=== PATIENT | female | born 1995 | race Caucasian/White ===

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

== ENCOUNTER 2017-04-08 10:05 | Emergency (ER) | payer OTHER ==
[2017-04-08 10:14] VITALS: BP 115/59; PULSE 80; TEMP 98.3; BMI 28.0
--- NOTE | 2017-04-08 10:33 | PDOC ---
History of Present Illness - General Chief Complaint: Cold Symptoms Stated Complaint: COLD SYMPTOMS Time Seen by Provider: 04/08/17 10:15 History Source: Patient Exam Limitations: No Limitations - History of Present Illness Initial Comments: CHIEF COMPLAINT: 21 y/o afebrile female with PMH asthma c/o flu like symptoms x 4 days. HISTORY OF PRESENT ILLNESS: The patient states she's had fever, cough, runny nose, and body aches x days. 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 She has not taken any medication. She did not get the flu shot. Past History - Past Medical History Allergies/Adverse Reactions: Allergies Allergy/AdvReac Type Severity Reaction Status Date / Time No Known Allergies Allergy Verified 04/08/17 10:13 Home Medications: Ambulatory Orders Albuterol Sulfate Inhaler - [Ventolin HFA Inhaler -] 1 - 2 inh PO Q6H #1 inhaler 04/08/17 Asthma: Yes COPD: No - Immunization History Immunization Up to Date: Yes - Suicide/Smoking/Psychosocial Hx Smoking Status: Yes Smoking History: Never smoked Have you smoked in the past 12 months: No Number of Cigarettes Smoked Daily: 0 Cigars Per Day: 0 Hx Alcohol Use: No Drug/Substance Use Hx: No Substance Use Type: Marijuana Review of Systems - Review of Systems Able to Perform ROS?: Yes Constitutional: Yes: Chills, Fever HEENTM: Yes: Nose Congestion, Throat Pain. No: Ear Pain, Throat Swelling, Difficulty Swallowing Respiratory: Yes: Cough. No: Shortness of Breath, Wheezing Cardiac (ROS): No: Chest Pain ABD/GI: No: Nausea, Vomiting Musculoskeletal: Yes: Other (body aches) *Physical Exam - Vital Signs Last Vital Signs Temp Pulse Resp BP Pulse Ox 98.3 F 80 16 115/59 100 04/08/17 10:12 04/08/17 10:12 04/08/17 10:12 04/08/17 10:12 04/08/17 10:12 - Physical Exam Comments: Well appearing ambulatory female in NAD or obvious discomfort. No cough in ER General Appearance: Yes: Nourished, Appropriately Dressed. No: Apparent Distress HEENT: positive: EOMI, MARIAJOSE, Pharynx Normal. negative: Muffled/Hoarse voice, Pharyngeal Erythema, Tonsillar Exudate, Nasal Congestion, Rhinorrhea Respiratory/Chest: positive: Normal Breath Sounds. negative: Respiratory Distress, Accessory Muscle Use, Crackles, Rales, Rhonchi, Wheezing Cardiovascular: positive: Regular Rhythm, Regular Rate Medical Decision Making - Medical Decision Making A/P: 21 y/o female with flu like symptoms. She is out of the tamiflu window. Will suggest supportive care measures of fluids, cough medicine and tylenol. She is requesting a refill of her albuterol inhaler. Instructed her to return to the ER with any worsening or concerning symptoms. The patient verbalizes understanding of all instructions, has no further questions and is awaiting discharge. *DC/Admit/Observation/Transfer Diagnosis at time of Disposition: Flu-like symptoms - Discharge Dispostion Disposition: HOME Condition at time of disposition: Good - Referrals Referrals: Arianna Brower MD [Primary Care Provider] - - Patient Instructions Printed Discharge Instructions: DI for Influenza -- Adult Additional Instructions: Discharge Instructions: -You most likely have the flu -Take Tylenol every 4 hours for fever/chills -Drink lots of fluids -Use your inhaler if you feel symptoms of asthma -Return to the ER with any worsening or concerning symptoms - Post Discharge Activity Forms/Work/School Notes: Back to Work
== END 2017-04-08 10:56 | disposition home or self-care (01) ==
LOC: JERFT 10:05
DX: J11.1 Influenza due to unidentified influenza virus with other respiratory manifestations (principal); J45.909 Unspecified asthma, uncomplicated
CPT/HCPCS: 99281-25

== ENCOUNTER 2017-06-09 16:36 | Emergency (ER) | payer OTHER ==
--- NOTE | 2017-06-09 17:20 | PDOC ---
Rapid Medical Evaluation Time Seen by Provider: 06/09/17 17:16 Medical Evaluation: Allergies Allergy/AdvReac Type Severity Reaction Status Date / Time No Known Allergies Allergy Verified 04/08/17 10:13 06/09/17 17:16 I have performed a brief in-person evaluation of this patient. The patient presents with a chief complaint of: "bad sinus thing", 5 episodes vomiting since yesterday, LMP 3/9 Pertinent physical exam findings: VSS, lungs ctab I have ordered the following: urine The patient will proceed to the ED for further evaluation. Discharge Disposition - Diagnosis Sinusitis - Referrals - Patient Instructions - Post Discharge Activity
[2017-06-09 17:21] VITALS: BP 121/69; PULSE 79; TEMP 97.9; BMI 30.1
--- NOTE | 2017-06-09 17:46 | PDOC ---
History of Present Illness - General Chief Complaint: Cold Symptoms Stated Complaint: sinus/nausea/cold like symptoms. Time Seen by Provider: 06/09/17 17:16 History Source: Patient Exam Limitations: No Limitations - History of Present Illness Initial Comments: 06/09/17 17:44 Patient is a 21-year-old female, no significant medical history currently on no medication. Patient presents with generalized body aches, nausea, tactile fever , nasal congestion. Crying during assessment stating that she doesn't feel well. Patient reports unable to eat anything because of the nausea. Complaining of suprapubic pain and generalized abdominal pain. No chest pain or shortness of breath. Past Medical History: Denies. Allergies: No known allergies Medications: None Family History: Non-contributory Social History: Denies smoking, alcohol use, or IVDU Vital signs on arrival are notable for pulse of 96. Review of Systems GENERAL/CONSTITUTIONAL: No fever or chills. No weakness. No weight change. HEAD, EYES, EARS, NOSE AND THROAT: No change in vision. No ear pain or discharge. No sore throat. Right frontal sinus tenderness. Significant nasal congestion CARDIOVASCULAR: No chest pain or shortness of breath. RESPIRATORY: No cough, wheezing, or hemoptysis. GASTROINTESTINAL: No nausea, vomiting, diarrhea or constipation. No rectal bleeding. GENITOURINARY: No dysuria, frequency, or change in urination. MUSCULOSKELETAL: No joint or muscle swelling or pain. No neck or back pain. SKIN AND BREASTS: No rash or easy bruising. NEUROLOGIC: No headache, vertigo, loss of consciousness, or loss of sensation. PSYCHIATRIC: No depression or anxiety. ENDOCRINE: No increased thirst. No abnormal weight change. HEMATOLOGIC/LYMPHATIC: No anemia, easy bleeding, or history of blood clots. ALLERGIC/IMMUNOLOGIC: No hives or skin allergy. No latex allergy. Physical Exam: GENERAL: The patient is awake, alert, and fully oriented, in no acute distress. HEAD: Normal with no signs of trauma. EYES: Pupils equal, round and reactive to light, extraocular movements intact, sclera anicteric, conjunctiva clear. ENT: Ears normal, bilateral nares with increased congestion, erythema and edema noted to right nares with drainage, oropharynx clear without exudates. Right frontal sinus pressure examination. Moist mucous membranes. No uvula deviation NECK: Normal range of motion, supple without lymphadenopathy, JVD, or masses. LUNGS: Breath sounds equal, clear to auscultation bilaterally. No wheezes, and no crackles. HEART: Regular rate and rhythm, normal S1 and S2 without murmur, rub or gallop. ABDOMEN: Soft, nontender, normoactive bowel sounds. No guarding, no rebound. No masses. No bruising or abrasions MUSCULOSKELETAL: Normal range of motion, no edema. No clubbing or cyanosis. No cords, erythema, or tenderness. No CVA Tenderness with fist. NEUROLOGICAL: Cranial nerves II through XII grossly intact. Normal speech, normal gait. SKIN: Warm, Dry, normal turgor, no rashes or lesions noted. Past History - Past Medical History Allergies/Adverse Reactions: Allergies Allergy/AdvReac Type Severity Reaction Status Date / Time No Known Allergies Allergy Verified 06/09/17 17:18 Home Medications: Ambulatory Orders Fluconazole [Diflucan] 150 mg PO ONCE #1 tablet 06/09/17 Nitrofurantoin Monohyd/M-Cryst [Macrobid -] 100 mg PO BID #14 capsule 06/09/17 Ondansetron [Zofran Odt -] 4 mg SL TID #10 od.tablet 06/09/17 Asthma: Yes COPD: No - Immunization History Immunization Up to Date: Yes - Suicide/Smoking/Psychosocial Hx Smoking Status: Yes Smoking History: Never smoked Have you smoked in the past 12 months: No Number of Cigarettes Smoked Daily: 1 Cigars Per Day: 0 Information on smoking cessation initiated: No Hx Alcohol Use: No Drug/Substance Use Hx: No Substance Use Type: Marijuana *Physical Exam - Vital Signs Last Vital Signs Temp Pulse Resp BP Pulse Ox 97.9 F 79 16 121/69 100 06/09/17 17:19 06/09/17 17:19 06/09/17 17:19 06/09/17 17:19 06/09/17 17:19 ED Treatment Course - LABORATORY CBC & Chemistry Diagram: 06/09/17 19:15 06/09/17 19:15 Medical Decision Making - Medical Decision Making 06/09/17 17:51 A/P: Patient here for evaluation of generalized body aches, nasal congestion, generalized feeling of pain. Nausea last night, vomiting clear liquid nonbilious. Urinalysis, urine and urine culture sent, rapid influenza Zofran 4 mg by mouth 1 06/09/17 19:23 Patient states that she is still having mid abdominal pain, reexamined. no rebound, no RUQ tenderness, no guarding, pain to suprapubic area. Laboratory Results - last 24 hr 06/09/17 06/09/17 06/09/17 17:45 17:45 19:15 WBC 11.0 H RBC 4.37 Hgb 12.8 Hct 38.3 MCV 87.7 MCH 29.4 MCHC 33.5 RDW 14.0 Plt Count 312 MPV 8.4 Neutrophils % 71.4 Lymphocytes % 20.4 Monocytes % 7.5 Eosinophils % 0.3 Basophils % 0.4 Urine Color Ltyellow Urine Appearance Slcloudy Urine pH 7.0 Ur Specific [place] 1.014 Urine Protein Negative Urine Glucose (UA) Negative Urine Ketones Negative Urine Blood Negative Urine Nitrite Negative Urine Bilirubin Negative Urine Urobilinogen Negative Ur Leukocyte Esterase 2+ H Urine WBC (Auto) 5 Urine RBC (Auto) 1 Urine Bacteria Rare Urine Mucus Few Urine HCG, Qual Negative . WIll send CBC, CMP, Lipase. Patient with +2 leuks and WBC 5, may be early onset UTI. Patient symptomatic. I will discharge patient on Macrobid, Zofran for nausea, increase fluid intake, Diflucan because of frequent yeast infections with antibiotics. I discussed the physical exam findings, ancillary test results and final diagnoses with the patient. I answered all of the patient's questions. The patient was satisfied with the care received and felt comfortable with the discharge plan and treatment plan. The patient will call to arrange follow-up and will return to the Emergency Department with any new, persistent or worsening symptoms. 06/09/17 20:13 *DC/Admit/Observation/Transfer Diagnosis at time of Disposition: UTI (urinary tract infection) Qualifiers: Urinary tract infection type: site unspecified Hematuria presence: without hematuria Qualified Code(s): N39.0 - Urinary tract infection, site not specified - Discharge Dispostion Disposition: HOME Condition at time of disposition: Stable Admit: No - Prescriptions Prescriptions: Fluconazole [Diflucan] 150 mg PO ONCE #1 tablet Nitrofurantoin Monohyd/M-Cryst [Macrobid -] 100 mg PO BID #14 capsule Ondansetron [Zofran Odt -] 4 mg SL TID #10 od.tablet - Referrals Referrals: Arianna Brower MD [Primary Care Provider] - - Patient Instructions - Post Discharge Activity
[2017-06-09 18:11] LABS: URINE APPEARANCE SLCLOUDY; URINE BILIRUBIN NEGATIVE (<2.0 mg/dL); URINE BLOOD NEGATIVE (NEGATIVE); URINE COLOR LTYELLOW; URINE GLUCOSE (UA) NEGATIVE (NEGATIVE); URINE KETONE NEGATIVE (NEGATIVE); URINE LEUK ESTERASE 2+ (NEGATIVE); URINE NITRITE NEGATIVE (NEGATIVE); URINE PROTEIN NEGATIVE (NEGATIVE); URINE UROBILINOGEN NEGATIVE mg/dL (0.2-1.0)
[2017-06-09 18:14] LABS: URINE BACTERIA RARE /hpf (NONE SEEN); URINE MUCUS FEW
[2017-06-09] MEDS ORDERED: ONDANSETRON *ODT* 4 MG TABLET SL ONE (18:34)
[2017-06-09] MEDS ORDERED: ONDANSETRON *ODT* 4 MG TABLET ONE (18:37)
[2017-06-09 19:37] LABS: BASO % 0.4 % (0-2.0); EOS % 0.3 % (0-4.5); HEMATOCRIT 38.3 % (32.4-45.2); HEMOGLOBIN 12.8 GM/dL (10.7-15.3); LYMPH % 20.4 % (8-40); MCH 29.4 pg (25.7-33.7); MCHC 33.5 g/dl (32.0-36.0); MEAN CELL VOLUME 87.7 fl (80-96); MEAN PLT VOLUME 8.4 fl (7.5-11.1); MONO % 7.5 % (3.8-10.2); NEUT % 71.4 % (42.8-82.8); PLATELET COUNT 312 K/MM3 (134-434); RBC 4.37 M/mm3 (3.60-5.2)
[2017-06-09 19:50] LABS: ALBUMIN 4.3 g/dl (3.4-5.0); ALK PHOS 65 U/L (45-117); ANION GAP 1 (8-16); BILIRUBIN,TOTAL 0.3 mg/dL (0.2-1.0); BLOOD UREA NITROGEN 13 mg/dL (7-18); CALCIUM 9.2 mg/dL (8.5-10.1); CHLORIDE 106 mmol/L (98-107); CO2 31 mmol/L (21-32); CREATININE 0.7 mg/dL (0.55-1.02); GLUCOSE,RANDOM 97 mg/dL (74-106); LIPASE 75 U/L (73-393); POTASSIUM 3.9 mmol/L (3.5-5.1); SGOT/AST 17 U/L (15-37); SGPT/ALT 20 U/L (12-78); SODIUM 138 mmol/L (136-145); TOT PROT 7.7 g/dl (6.4-8.2)
== END 2017-06-09 20:16 | disposition home or self-care (01) ==
LOC: JERFT 16:36
DX: N39.0 Urinary tract infection, site not specified (principal); J45.909 Unspecified asthma, uncomplicated
CPT/HCPCS: 36415; 80053; 81003; 81015; 83690; 84703; 85025; 87086; 87491; 87591; 87804; 99281-25; Q0162

== ENCOUNTER 2017-07-11 03:48 | Emergency (ER) | payer OTHER ==
[2017-07-11] MEDS ORDERED: ALBUTEROL SO4 2.5/IPRATROPIUM 0.5 INH SOL 3 ML VIAL.NEB. NEB ONE ×2 (03:55→04:11)
[2017-07-11 03:58] VITALS: BP 107/64; PULSE 80; TEMP 98.6; BMI 30.1
--- NOTE | 2017-07-11 04:11 | PDOC ---
History of Present Illness - General Chief Complaint: Asthma Stated Complaint: DIFFICULTY BREATHING Time Seen by Provider: 07/11/17 03:56 History Source: Patient Exam Limitations: No Limitations - History of Present Illness Initial Comments: This is a 21 YOF with h/o asthma (never admitted for asthma, never intubated, never placed on steroid course, but uses her Albuterol about 10 times every day for months) who p/w SOB, wheezing, cough, and chest tightness in the setting of a recent upper respiratory infection. She explains that for the past several days she has been having sore throat, cough, and headache. URI seems to trigger her asthma and she became acutely SOB and with chest tightness tonight, typical of her normal asthma exacerbation. She got no relief from her Albuterol inhaler. She denies any fever, chills, nausea, vomiting, diarrhea, constipation , rash, dysuria, or other symptoms. She smokes marijuana but no cigarettes. Past History - Past Medical History Allergies/Adverse Reactions: Allergies Allergy/AdvReac Type Severity Reaction Status Date / Time No Known Allergies Allergy Verified 07/11/17 03:56 Home Medications: Ambulatory Orders Prednisone [Deltasone] 40 mg PO DAILY #4 tablet 07/11/17 Asthma: Yes COPD: No - Immunization History Immunization Up to Date: Yes - Suicide/Smoking/Psychosocial Hx Smoking Status: Yes Smoking History: Never smoked Have you smoked in the past 12 months: No Number of Cigarettes Smoked Daily: 1 Cigars Per Day: 0 Information on smoking cessation initiated: No Hx Alcohol Use: No Drug/Substance Use Hx: No Substance Use Type: Marijuana *Physical Exam - Vital Signs Last Vital Signs Temp Pulse Resp BP Pulse Ox 98.6 F 80 24 107/64 98 07/11/17 03:57 07/11/17 03:57 07/11/17 03:57 07/11/17 03:57 07/11/17 03:57 Heart Score/ECG Review #1 NSR with sinus arrhythmia, rate of 84, normal axis and intervals, no ST-T changes Medical Decision Making - Medical Decision Making Patient with h/o asthma p/w respiratory distress like their prior asthma exacerbation. No reported h/o asthma resulting in intubation, PTX, seizure, LOC, hypercapnia, acidosis, etc. Initial Vital Signs Temp Pulse Resp BP Pulse Ox 98.6 F 80 24 107/64 98 07/11/17 03:57 07/11/17 03:57 07/11/17 03:57 07/11/17 03:57 07/11/17 03:57 Exam: poor air movement but speaking in full sentences on DuoNeb treatment, tachypneic. DDX IBNLT: asthma exacerbation, COPD, bronchitis, viral URI, influenza, PNA, PTX , CHF, ACS, pericarditis W/U ordered: CXR EKG TX ordered: DuoNebs x3, SoluMedrol, Magnesium Will consider BiPAP, IM terbutaline, Magnesium 2 GM IV over 20 min if necessary EKG: NSR with sinus arrhythmia, rate of 84, normal axis and intervals, no ST-T changes CXR: NADP Reassessment: Patient feels much better, no wheezing, good air movement Repeat VS: The patient has gotten significant relief of symptoms with ED medications. Workup is not concerning for emergency-level pathology at this time. Patient states they have their normal asthma medications at home including nebs and MDI. 5 day course prednisone 40 mg sent to pharmacy. The patient is appropriate for discharge with close outpatient follow up. The patient is comfortable with this plan and will follow up with their PCP in 1 -3 days. Return precautions are discussed and they will come back to the ER if necessary. *DC/Admit/Observation/Transfer Diagnosis at time of Disposition: Viral URI, Chest tightness Asthma exacerbation Qualifiers: Asthma severity: unspecified severity Asthma persistence: unspecified Qualified Code(s): J45.901 - Unspecified asthma with (acute) exacerbation - Discharge Dispostion Disposition: HOME Condition at time of disposition: Stable Decision to Admit order: No - Prescriptions Prescriptions: Prednisone [Deltasone] 40 mg PO DAILY #4 tablet - Referrals Referrals: Arianna Brower MD [Primary Care Provider] - - Patient Instructions Printed Discharge Instructions: DI for Asthma -- Adult Additional Instructions: You were seen in the ER for asthma exacerbation. We gave you steroids and breathing treatments which resolved your symptoms while you were here in the department. We did blood work and a chest x-ray which did not show any concerning findings. After our assessment, we do not believe you are having a medical emergency at this time, and we believe you are safe to go home. We are sending a prescription for prednisone to your pharmacy. Please take the whole course as prescribed, and follow up with your regular doctor(s) in the next 1-3 days. Call their clinic [facility], tell them you were seen in the ER for asthma, and tell them you need an appointment. Please discuss going on a preventative, scheduled inhaler medication for your asthma because you should not need to use your Albuterol rescue inhaler so frequently. Please come back to the ER at any time (24 hours a day) for any new or worsening symptoms, like worsened wheezing/ shortness of breath that is not relieved with your home medications, new severe chest pain, loss of consciousness, or seizure. If you are having severe or life threatening symptoms, or symptoms that make it unsafe to drive or have someone drive you, please call 911. - Post Discharge Activity
[2017-07-11] MEDS ORDERED: methylPREDNISolone NA SUCC 125 MG/2 ML VIAL IVPB ONE (04:14)
[2017-07-11] MEDS ORDERED: methylPREDNISolone NA SUCC 125 MG/2 ML VIAL ONE (04:35)
--- NOTE | 2017-07-11 05:54 | PDOC ---
Attending Attestation - Resident Resident Name: JaskaranTia - ED Attending Attestation I have performed the following: I have examined & evaluated the patient, The case was reviewed & discussed with the resident, I agree w/resident's findings & plan - HPI HPI: 07/11/17 05:53 Pt comes with ngozi exacerbation and viral URI and cough - Physicial Exam PE: 07/11/17 05:53 Agree with resident exam. - Medical Decision Making 07/11/17 05:53 CXR normal. Pt improved after inhalers and treatment in the ER. Pt is stable for discharge.
--- NOTE | 2017-07-11 08:20 | EKG ---
Test Reason : Blood Pressure : / mmHG Vent. Rate : 084 BPM Atrial Rate : 084 BPM P-R Int : 134 ms QRS Dur : 072 ms QT Int : 354 ms P-R-T Axes : 003 064 049 degrees QTc Int : 418 ms NORMAL SINUS RHYTHM WITH SINUS ARRHYTHMIA NORMAL ECG NO PREVIOUS ECGS AVAILABLE Confirmed by JOLANTA ALEXANDER, LEVI ([id number]) on 07/11/2017 8:19:35 AM Referred By: Confirmed By:LEVI STOVER MD
== END 2017-07-11 06:18 | disposition home or self-care (01) ==
LOC: JER 03:48
PROC: 3E0333Z Introduction of Anti-inflammatory into Peripheral Vein, Percutaneous Approach (ICD-10-PCS; principal; 2017-07-11)
PROC: 3E0F7GC Introduction of Other Therapeutic Substance into Respiratory Tract, Via Natural or Artificial Opening (ICD-10-PCS; 2017-07-11)
DX: J45.901 Unspecified asthma with (acute) exacerbation (principal); J06.9 Acute upper respiratory infection, unspecified
CPT/HCPCS: 71045-TC-FY; 93005; 93010; 94640; 96374; 99281-25; J7620

== ENCOUNTER 2017-10-24 21:31 | Emergency (ER) | payer OTHER ==
[2017-10-24 21:38] VITALS: BP 118/60; PULSE 87; TEMP 99.2; BMI 30.1
--- NOTE | 2017-10-24 22:03 | PDOC ---
History of Present Illness - General Chief Complaint: Vaginal Bleeding Stated Complaint: 9 WEEKS /BLEEDING Time Seen by Provider: 10/24/17 21:43 History Source: Patient Exam Limitations: No Limitations - History of Present Illness Initial Comments: 10/24/17 22:01 22 year old woman A1 with distant pmhx of chlamydia that was treated and who presents with vaginal spotting that started just prior to arrival. She denies seeing clots or passage of tissue. She had a miscarriage at 4 months with her last and did not have vaginal bleeding at that time. She denies abdominal pain, pelvic pressure / cramping, shortness of breath, chest pain or recent illness. She has no other complaints at bedside. LNMP: 09/07/17. She does not use contraceptives and is sexually active with one partner. She reports a history of chlamydia 4 years ago that was treated. She went to [address] [place] [address] last week and had a positive urine test PMHX: as in HPI PSHX: Meds: none Allergies: none Tob: none Etoh: none Rec drugs: none Past History - Past Medical History Allergies/Adverse Reactions: Allergies Allergy/AdvReac Type Severity Reaction Status Date / Time No Known Allergies Allergy Verified 10/24/17 21:36 Home Medications: Ambulatory Orders NK [No Known Home Medication] 10/25/17 Asthma: Yes COPD: No - Immunization History Immunization Up to Date: Yes - Suicide/Smoking/Psychosocial Hx Smoking Status: Yes Smoking History: Never smoked Have you smoked in the past 12 months: No Number of Cigarettes Smoked Daily: 1 Cigars Per Day: 0 Hx Alcohol Use: No Drug/Substance Use Hx: No Substance Use Type: Marijuana Review of Systems - Review of Systems Able to Perform ROS?: Yes Is the patient limited Cymraes proficient: No Constitutional: No: Chills, Diaphoresis, Fever Respiratory: No: Cough, Orthopnea, Shortness of Breath Cardiac (ROS): No: Chest Pain ABD/GI: No: Constipated, Diarrhea, Nausea, Vomiting *Physical Exam - Vital Signs Last Vital Signs Temp Pulse Resp BP Pulse Ox 99.2 F 87 18 118/60 100 10/24/17 21:36 10/24/17 21:36 10/24/17 21:36 10/24/17 21:36 10/24/17 21:36 - Physical Exam Comments: 10/24/17 22:15 PELVIC: blood in vaginal canal, closed os, no active bleeding, no CVA tenderness. 10/24/17 22:17 ED Treatment Course - LABORATORY CBC & Chemistry Diagram: 10/24/17 22:14 10/24/17 22:14 Medical Decision Making - Medical Decision Making 10/24/17 22:18 22 year old woman A1 with distant pmhx of chlamydia that was treated and who presents with vaginal spotting that started just prior to arrival. She denies seeing clots or passage of tissue. She had a miscarriage at 4 months with her last and did not have vaginal bleeding at that time. DDX including but not limited to: threatened vs complete vs ectopic W/U: -cbc, cmp, type and screen, beta hcg - TVUS - ua, ucx TX: - ED Course: No acute distress *DC/Admit/Observation/Transfer Diagnosis at time of Disposition: Vaginal bleeding - Discharge Dispostion Disposition: HOME Condition at time of disposition: Stable Decision to Admit order: No - Referrals Referrals: Arianna Brower MD [Primary Care Provider] - Mouna Leigh MD [Staff Physician] - - Patient Instructions Printed Discharge Instructions: DI for Vaginal Bleeding During Additional Instructions: You were seen in the ED for complaints of vaginal bleeding. In the ED you were evaluated with labwork and imaging. Your results were unremarkable. There does not appear to be an acute need for immediate hospitalization. You are advised to follow up with your primary care physician within 1 week. You were given a referral to obgyn and are advised to follow up within 1 week. Return to the ED immediately if you experience worsening vaginal bleeding, abdominal pain, fever, nausea, vomiting. - Post Discharge Activity Forms/Work/School Notes: Back to Work
--- NOTE | 2017-10-24 22:07 | PDOC ---
Attending Attestation - Resident Resident Name: Gino Lopez - ED Attending Attestation I have performed the following: I have examined & evaluated the patient, The case was reviewed & discussed with the resident, I agree w/resident's findings & plan, Exceptions are as noted - HPI HPI: 10/24/17 22:05 22 yo female p/w history of positive preg test and LMP 09/07/17 and p/w vaginal bleeding - Physicial Exam PE: 10/25/17 00:07 wnwd 22 yo female w vag bleedind head cnat neck supple lungs cta b/k cvs [id number] abd nontender pelvic done by Dr Loving ext no e/c/c neuro axox3 skin warma dn dry psych appropriate - Medical Decision Making 10/25/17 00:09 blood type A POSITIVE [id number] PELVIC US SL IUP weeks 1 days FHT 121 10/25/17 00:19 imp theatened ab plan follow up at [address] [place] [address] <Cayla Galindo - Last Filed: 10/25/17 00:19> - HPI HPI: 10/25/17 00:20 Patient is a 22 year old female,A1 who is 6 weeks , with a significant past medical history of Chlamydia s/p 4 years ago, who presents to the ED with complaints of slight spotting that occured this afternoon while at work. Patient reports noticing small amount of vaginal spotting while at work, prompting her to come into the ED for further evaluation due to be concerned for her child. She reports experiencing increased vaginal bleeding while in the ED. Patient reports her last menstrual period was september 07. Denies chest pain,Sob. Denies nausea, vomiting. Denies any trauma. Denies fevers ,chills. Denies contact with sick individuals, out of state travelling. Denies dysuria, hematuria. Denies any other symptoms. Allergies: None Social history: No smoking. No alcohol. No illicit drugs. Surgical history: None PMD: dr. Chamberlain <Walter Baker - Last Filed: 10/25/17 00:20>
[2017-10-24 22:30] LABS: BASO % 0.5 % (0-2.0); EOS % 1.4 % (0-4.5); HEMOGLOBIN 12.7 GM/dL (10.7-15.3); LYMPH % 24.4 % (8-40); MCH 29.5 pg (25.7-33.7); MCHC 34.2 g/dl (32.0-36.0); MEAN CELL VOLUME 86.4 fl (80-96); MEAN PLT VOLUME 7.8 fl (7.5-11.1); NEUT % 64.7 % (42.8-82.8); PLATELET COUNT 339 K/MM3 (134-434); RBC 4.28 M/mm3 (3.60-5.2); RDW 13.6 % (11.6-15.6); WHITE BLOOD COUNT 12.8 K/mm3 (4.0-10.0)
[2017-10-24 22:41] LABS: URINE APPEARANCE CLEAR; URINE BILIRUBIN NEGATIVE (<2.0 mg/dL); URINE COLOR STRAW; URINE GLUCOSE (UA) NEGATIVE (NEGATIVE); URINE KETONE TRACE (NEGATIVE); URINE LEUK ESTERASE NEGATIVE (NEGATIVE); URINE NITRITE NEGATIVE (NEGATIVE); URINE PROTEIN NEGATIVE (NEGATIVE); URINE UROBILINOGEN NEGATIVE mg/dL (0.2-1.0)
[2017-10-24 22:43] LABS: EPI CELLS RARE /HPF (FEW)
[2017-10-24 23:00] LABS: ALBUMIN 4.3 g/dl (3.4-5.0); ANION GAP 12 MMOL/L (8-16); BILIRUBIN,TOTAL 0.5 mg/dL (0.2-1.0); BLOOD UREA NITROGEN 11 mg/dL (7-18); CHLORIDE 103 mmol/L (98-107); CO2 23 mmol/L (21-32); CREATININE 0.5 mg/dL (0.55-1.02); GLUCOSE,RANDOM 81 mg/dL (74-106); POTASSIUM 3.8 mmol/L (3.5-5.1); SGOT/AST 12 U/L (15-37); SGPT/ALT 17 U/L (12-78); SODIUM 138 mmol/L (136-145); TOT PROT 7.5 g/dl (6.4-8.2)
[2017-10-24 23:14] LABS: ALK PHOS 57 U/L (45-117)
== END 2017-10-25 00:44 | disposition home or self-care (01) ==
LOC: JER 21:31
DX: O26.891 Other specified pregnancy related conditions, first trimester (principal); O20.8 Other hemorrhage in early pregnancy; Z3A.09 9 weeks gestation of pregnancy
CPT/HCPCS: 36415; 76817-TC; 80053; 81003; 81015; 84702; 85025; 86850; 86900; 86901; 87086; 99281-25

== ENCOUNTER 2019-11-25 11:33 | Emergency (ER) | payer OTHER ==
[2019-11-25 11:52] VITALS: BP 103/49; PULSE 73; TEMP 98.3; BMI 33.6
--- OUTSIDE RECORDS SUMMARY | 2019-11-25 12:16 | XMS ---
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 [id number] 02/21/2019 09:11:00 PM EST [facility] [id number] Hospital Center Name Value Range Interpretation Description Data Source(s ) Supporting Code Document(s ) pH Art 7.36 Normal (applies to [facility] yuko Cord non-numeric Health System results) Hospital Center pCO2 Art 48.7 Normal (applies to [facility] yuko Cord mm[Hg] non-numeric - [facility] results) Hospital Center pO2 Art 16.6 Normal (applies to [facility] yuko Cord mm[Hg] non-numeric - [facility] results) Hospital Center O2Sat Art 40.3 % [facility] pH Noel 7.37 Normal (applies to [facility] yuko Cord non-numeric Health System results) Hospital Center BE Art 1.0 Normal [facility]L [facility] results) [facility] HCO3 Art 27.0 Normal (applies to [facility] yuko Cord mmol/L non-numeric - [facility] results) Hospital [facility] pO2 Noel 25.8 Normal [facility] mm[Hg] non-numeric - [facility] results) [facility] BE Noel -0.7 Normal [facility] mmol/L [facility] results) Hospital [facility] pCO2 Noel 42.8 Normal (applies to [facility] yuko Cord mm[Hg] non-[facility] results) Hospital [facility] HCO3 Noel 24.6 Normal (applies to [facility] yuko Cord mmol/L [facility] results) Hospital Center O2Sat Noel 67.2 % [facility] ID Date Data Source [id number] 02/19/2019 04:50:00 PM EST [facility] [id number] Hospital [facility] Name Value Range Interpretation Description Data Source(s ) Supporting Code Document(s ) Addison Percent 7.9 % Normal (applies [place] [facility] [place] to non-numeric - [facility] results) [facility] Neutro 79.9 % Above high normal [facility] - [facility] Lymph 11.7 % Below low normal [facility] Eos Percent 0.4 % Normal (applies [place] [facility] to non-numeric [facility] results) [facility] Baso Percent 0.1 % Normal (applies [place] [facility] to non-numeric [facility] results) [facility] Lymph 1.6 Normal (applies [place] [facility] Absolute x10(3)/mc to non-numeric - [facility] L results) [facility] Neutro 10.9 Above high normal [place] [facility] Absolute x10(3)/mc - [facility] L [facility] [place] Addison 1.1 Normal (applies [place] [facility] Absolute x10(3)/mc to non-numeric - [facility] L results) [facility] Eos Absolute 0.1 Normal (applies [place] [facility] x10(3)/mc to non-numeric [facility] L results) [facility] Baso 0.0 Normal (applies [place] [facility] Absolute x10(3)/mc to non-numeric - [facility] L results) Hospital Center ID Date Data Source [id number] 02/19/2019 04:50:00 PM EST [facility] [id number] [facility] [place] Name Value Range Interpretation Code Description Data Jeanette rce(s) Supporting Document(s ) Mumps IgG Below low normal [facility] Result Comment: AU/mL In terpretation
<9.00 Negative
9.00-10.99 Equiv ocal
>10.99 Positive
A positive result indicates that the patie nt has antibody to
mumps virus. It does not differentiate between an active or<b r/>past infection. The clinical diagnosis must be interpreted
in conjunction w ith clinical signs and symptoms of the
patient.
[id number]
[facility]
[place], [place] ID Date Data Source [id number] 02/19/2019 04:50:00 PM EST [facility] [id number] [facility] Name Value Range Interpretation Description Data Source(s ) Supporting Code Document(s ) HIV Nonreactive [facility] Ag/Ab - [facility] Result Comment: REFERENCE RANGE: Nonreac tive HIV-1 antigen and HIV-1/HIV-2 antibodies were not detected. There is no laboratory evidence of HIV i nfection. PLEASE NOTE: This information has been d isclosed to you from records whose confidentiality may b e protected by state law. If your state requires such protection, then the state law prohibits you from making any further disclosure of the information without th e specific written consent of the person to whom it pertains, or as otherwise permitted by law. A general a uthorization for the release of medical or other informat ion is NOT sufficient for this purpose. The performance of this assay has not be en clinically validated in patients less than 2 years old. For additional information please refer to http://education.[employer].Emergent Views/fa q/DZE388. (This link is being provided for informational /educational purposes only.) [id number] [employer] [place], [place] ID Date Data Source [id number] 02/19/2019 04:50:00 PM EST [facility] [id number] [facility] Name Value Range Interpretation Description Data Source(s ) Supporting Code Document(s ) RPR Scr Non-Reacti Normal (applies to [facility] erian ve [facility] (02/19/19 results) Hospital Center 4:50 PM) ID Date Data Source [id number] 02/19/2019 04:50:00 PM EST [facility] [id number] [facility] Name Value Range Interpretation Description Data Source(s ) Supporting Code Document(s ) WBC 13.6 Above high normal [facility] emerita x10(3)/mc [facility] L Hospital Center Hct 36.1 % Below low normal [facility] RBC 4.34 Normal (applies to [facility] x10(6)/[facility] L results) [facility] [place] Hgb 11.8 g/dL Normal (applies to [facility] results) [facility] MCV 83.4 fL Normal (applies to [facility] results) [facility] [place] [place] MCHC 32.6 g/dL Below low normal [facility] MCH 27.2 pg Normal (applies to [facility] results) [facility] [place] RDW 14.3 % Normal (applies to [facility] results) [facility] [place] [place] Platelet 256 Normal (applies to [facility] x10(3)/[facility] L results) [facility] [place] MPV 8.1 fL Normal (applies to [facility] results) Hospital Center ID Date Data Source [id number] 02/19/2019 04:50:00 PM EST [facility] [id number] [facility] Name Value Range Interpretation Description Data Source(s ) Supporting Code Document(s ) Capture Negative Normal (applies [facility] n ABS ABSC to [facility] (02/19/19 results) Hospital Center 4:50 PM) ID Date Data Source [id number] 02/19/2019 04:50:00 PM EST [facility] [id number] [facility] Name Value Range Interpretation Code Description Data Jeanette rce(s) Supporting Document(s ) ABO/Rh A POS [facility] ID Date Data Source [id number] 12/01/2018 06:23:00 PM EDT [facility] [id number] [facility] Name Value Range Interpretation Description Data Source(s ) Supporting Code Document(s ) UA Glucose Negative Normal (applies [place] (12/01/18 to non-numeric [facility] - 6:23 PM) results) [facility] UA Protein 30 mg/dL [facility] UA Blood Negative Normal (applies [place] (12/01/18 to non-numeric [facility] - 6:23 PM) results) [facility] UA Bili Negative Normal (applies [place] (12/01/18 to non-numeric [facility] - 6:23 PM) results) [facility] UA pH 6.0 Normal (applies [place] to non-numeric [facility] - results) [facility] UA Normal Normal (applies [place] Urobilinogen (12/01/18 to non-numeric [facility] - 6:23 PM) results) [facility] UA Nitrite Negative Normal (applies [place] (12/01/18 to non-numeric [facility] - 6:23 PM) results) [facility] UA Ketones Negative Normal (applies [place] (12/01/18 to non-numeric [facility] - 6:23 PM) results) [facility] UA Leuk Est Negative Normal (applies [place] (12/01/18 to non-numeric [facility] - 6:23 PM) results) [facility] UA Appear Cloudy [place] *ABN*(12/01 [facility] 6:23 [facility] PM) [facility] UA RBC 0-4 /HPF Normal (applies [place] to non-numeric [facility] - results) [facility] UA Spec Grav Above high [place] normal Rust UA Color Yellow Normal (applies [place] (12/01/18 to non-numeric [facility] - 6:23 PM) results) [facility] UA WBC 0-4 /HPF Normal (applies [place] to non-numeric [facility] - results) [facility] UA Bacteria Moderate [place] /HPF Rust UA Squam 10-14 /HPF [place] Epithelial Rust ID Date Data Source [id number] 12/01/2018 06:16:00 PM EDT [facility] [id number] [facility] Name Value Range Interpretation Description Data Source(s ) Supporting Code Document(s ) Neg Normal (applies [place] ia n Fibronect (12/01/18 to non-[facility] 6:16 PM) results) Hospital Center ID Date Data Source [id number] 09/15/2018 12:56:24 PM EDT [facility] [id number] [facility] Name Value Range Interpretation Description Data Source(s ) Supporting Code Document(s ) RADRPT <table border="1" [facility] emerita width="95%"><colg - [facility] chinedu roup><col Hospital Center width="25%"></col ><col width="25%"></col ><col width="25%"></col ><col width="25%"></col ></colgroup><tbod y><tr><td>Exam Date Time</td><td>Proc edure</td><td>Per forming Provider</td><td> Status</td></tr>< tr><td>09/15/18 12:56 PM</td><td>US 2nd/3rd Trimester</td><td >JAMIE PAN; </td><td>Auth (Verified)</td></ tr></tbody></tabl e><paragraph>Note s:</paragraph><pa ragraph>(US 2nd/3rd Trimester) Reason For Exam: Hemorrhage Early Preg</paragraph>< paragraph><conten t>Report</content >
<content ID="[id number]">Obstetrical Sonogram
<br/ >CLINICAL HISTORY: Vaginal burning
Obste trical sonogram was performed.
<b r/>There is a single intrauterine gestation in variable presentation. The
placenta is anteriorly located and not low-lying in position. Normal
amount of amniotic fluid is identified. heart rate is detected
at 139 beats a minute. Amniotic fluid index measures 11 cm.

Feta l measurements as follows.
<br/ >BPD measuring 3.2 cm corresponding to 16 weeks.

H ead circumference measuring 11.9 cm corresponding to 15 weeks and 6
days.
< br/>Abdominal circumference measuring 9.8 cm corresponding to 15 weeks and
6 days.

Fe mur length measuring 2.1 cm corresponding to 16 weeks and 2 days.

Th e composite sonographic age is 16 weeks and 0 day and estimated
anastacia ed of delivery is . Estimated weight is 143 +/- 21
gm.
<b r/>IMPRESSION:
Single viable intrauterine gestation is noted in vertex presentation.<br/ >Composite sonographic age of 16 weeks and 0 day is noted. </content>
<c ontent> Final

Di ctated: 09/15/2018 12:59 pm Shan Portillo MD

Signed (Electronic Signature): 09/15/2018 12:59 pm
Signed by: Shan Portillo MD
Transcribed by: ROBSON Technologist: LUDA </content></kay raph> ID Date Data Source [id number] 09/15/2018 12:31:00 PM EDT [facility] [id number] [facility] Name Value Range Interpretation Code Description Data Jeanette rce(s) Supporting Document(s ) EGFR AA [facility] EGFR Non [facility] - AA [facility] ID Date Data Source [id number] 09/15/2018 12:31:00 PM EDT [facility] [id number] [facility] Name Value Range Interpretation Description Data Source(s ) Supporting Code Document(s ) Sodium Lvl 135 Below low normal [place] [facility] mmol/L - [facility] AST 19 Normal (applies [place] [facility] [place] unit/L to non[facility] results) [facility] Glucose Lvl 86 mg/dL Normal (applies [place] [facility] to [facility] results) [facility] Chloride 105 Normal (applies [place] [facility] [place] mmol/L to [facility] results) [facility] Calcium Lvl 9.3 Normal (applies [place] [facility] [place] mg/dL to non[facility] results) [facility] Albumin Lvl 3.9 g/dL Normal ([place]lies [place] [facility] [place] to [facility] results) [facility] AGPK 13.2 Normal (applies [place] [facility] [place] to [facility] results) [facility] Creatinine 0.41 Below low normal [place] [facility] mg/dL - [facility] CO2 21 Below low normal [place] [facility] mmol/L - [facility] Total Protein 6.9 g/dL Normal ([place]lies [place] [facility] [place] to [facility] results) [facility] Potassium Lvl 4.2 Normal (applies [place] [facility] [place] mmol/L to [facility] results) [facility] Alk Phos 39 Normal (applies [place] [facility] [place] unit/L to [facility] results) [facility] Bili Total 0.50 Normal (applies [place] [facility] mg/dL to [facility] results) [facility] BUN 10 mg/dL Normal (applies [place] [facility] to [facility] results[facility] ALT Normal (applies [place] [facility] to [facility] results) Hospital Center ID Date Data Source [id number] 09/15/2018 12:31:00 PM EDT [facility] [id number] [facility] Name Value Range Interpretation Description Data Source(s ) Supporting Code Document(s ) RBC 4.32 Normal (applies to [place] [facility] x10(6)/mc [facility] L results) [facility] WBC 11.6 Above high normal [place] [facility] x10(3)/ - [facility] L [facility] MPV 8.0 fL Normal [facility] Hct 37.0 % Normal [facility] RDW 14.0 % Normal (applies to [facility] results) [facility] Platelet 263 Normal (applies [place] [facility] x10(3)/ non-[facility] L results) [facility] MCV 85.7 fL Normal [facility] MCH 29.1 pg Normal (applies to [facility] results) [facility] Hgb 12.6 g/dL Normal (applies to [facility] MCHC 34.0 g/dL Normal (applies to [facility] results) Hospital [facility] ID Date Data Source [id number] 09/15/2018 12:31:00 PM EDT [facility] [id number] [facility] Name Value Range Interpretation Description Data Source(s ) Supporting Code Document(s ) Baso Percent 0.9 % Normal (applies [place] [facility] [place] to [facility] results) [facility] Addison Percent 6.7 % Normal (applies [place] [facility] [place] to [facility] results) [facility] Lymph 16.0 % Below low normal [place] [facility] Percent - [facility] Neutro 8.8 Above high normal [place] [facility] Absolute x10(3)/ - [facility] L [facility] Eos Percent 1.0 % Normal (applies [place] [facility] [place] to [facility] results) [facility] Neutro 75.4 % Normal (applies [place] [facility] [place] Percent to [facility] results) [facility] Eos Absolute 0.1 Normal (applies [place] [facility] [place] x10(3)/mc to [facility] L results) [facility] Baso 0.1 Normal (applies [place] [facility] Absolute x10(3)/mc to non-numeric - [facility] L results) [facility] Lymph 1.9 Normal (applies [place] [facility] Absolute x10(3)/mc to non-numeric - [facility] L results) [facility] Addison 0.8 Normal (applies [place] [facility] [place] Absolute x10(3)/mc to non-numeric [facility] L results) Hospital Center ID Date Data Source [id number] 09/15/2018 12:26:00 PM EDT [facility] [id number] Hospital Center Name Value Range Interpretation Description Data Source(s ) Supporting Code Document(s ) UA Glucose Negative Normal (applies [place] (09/15/18 to non-numeric [facility] - 12:26 PM) results) [facility] UA Bili Negative Normal (applies [place] (09/15/18 to non-numeric [facility] - 12:26 PM) results) [facility] UA Spec Grav 1.028 Normal (applies [place] to non-numeric [facility] - results) [facility] UA Protein 20 mg/dL [facility] UA Color Yellow Normal (applies [place] (09/15/18 to non-numeric [facility] - 12:26 PM) results) [facility] UA Appear Cloudy [place] *ABN*(09/15 [facility] 12:26 [facility] PM) [facility] UA Leuk Est Negative Normal (applies [place] (09/15/18 to non-numeric [facility] - 12:26 PM) results) [facility] UA pH 6.0 Normal (applies [place] to non-numeric [facility] - results) [facility] UA Blood Negative [place] *NA*( [facility] 12:26 [facility] PM) [facility] UA Nitrite Negative Normal (applies [place] (09/15/18 to non-numeric [facility] - 12:26 PM) results) [facility] UA Ketones Negative Normal (applies [place] (09/15/18 to non-numeric [facility] - 12:26 PM) results) [facility] UA Normal Normal (applies [place] Urobilinogen (09/15/18 to non-numeric [facility] - 12:26 PM) results) [facility] ID Date Data Source [id number] 09/15/2018 12:26:00 PM EDT [facility] [id number] [facility] Name Value Range Interpretation Description Data Source(s ) Supporting Code Document(s ) UA Bacteria Moderate [place] /HPF Rust UA Squam 5-9 /HPF [place] Epithelial Rust UA WBC 0-4 /HPF Normal (applies [place] to non-numeric [facility] - results) [facility] UA RBC 0-4 /HPF Normal (applies [place] to non-numeric [facility] - results) [facility] ID Date Data Source [id number] 07/09/2018 11:20:00 PM EDT [facility] [id number] [facility] Name Value Range Interpretation Description Data Source(s ) Supporting Code Document(s ) Beta hCG 56496.00 [facility] Quant mIU/mL - [facility] ID Date Data Source [id number] 07/09/2018 10:58:10 PM EDT [facility] [id number] [facility] Name Value Range Interpretation Description Data Source(s ) Supporting Code Document(s ) RADRPT <table border="1" [place] [facility] width="95%"><colg - [facility] chinedu rou><col [facility] width="25%"></col ><col width="25%"></col ><col width="25%"></col ><col width="25%"></col ></colgroup><tbod y><tr><td>Exam Date Time</td><td>Proc edure</td><td>Per forming Provider</td><td> Status</td></tr>< tr><td>07/09/18 10:58 PM</td><td>US 1st Trimester</td><td >DEANNE REDMAN; </td><td>Auth (Verified)</td></ tr></tbody></tabl e><paragraph>Note s:</paragraph><pa ragraph>(US 1st Trimester) Reason For Exam: Other</paragraph> <paragraph><grisel nt>Report</conten t>
<content ID="[id number]">EXAMINATION : A transvaginal pelvic ultrasound was performed.
HISTORY: dating
COMPAR DOTTIE: 06/27/2018.
<b r/>The uterus measures 8.4 x 6.3 x 5.3 cm.
There is a single intrauterine gestational sac with mean sac diameter
of 1.8 cm. The yolk sac measures 3 mm, and the crown-rump length
measur es 0.3 cm, corresponding to a gestational age of 6 weeks.
heart rate was detected at 114 bpm.
Incident ally detected is a subcentimeter subchorionic hemorrhage.
< br/>The right ovary measures 3.8 x 2.4 x 2.1 cm and contains a 1.3 cm cyst
with adjacent subcentimeter cyst.
The left ovary measures 1.8 x 1.9 x 2.6 cm and is unremarkable.
There is no significant free fluid.

I MPRESSION:
Si ngle, live intrauterine with gestational age of 6 weeks.
Subcen timeter subchorionic hemorrhage. </content>
<c ontent> Final

Di ctated: 07/10/2018 10:16 am MK KAPOOR MD

Signed (Electronic Signature): 07/10/2018 10:16 am
Signed by: MK KAPOOR MD
Tra nscribed by: ALESSANDRA Technologist: JOVANA </content></kay raph> ID Date Data Source [id number] 07/09/2018 10:44:00 PM EDT [facility] [id number] [facility] Name Value Range Interpretation Description Data Source(s ) Supporting Code Document(s ) RDW 13.5 % Normal (applies to [facility] results) Hospital [facility] MPV 7.6 fL Normal (applies to [facility] results) [facility] [place] Platelet 360 Normal (applies to [facility] x10(3)/[facility] L results) Hospital [facility] MCV 86.1 fL Normal (applies to [facility] results) [facility] WBC 15.2 Above high normal [facility] emerita x10(3)/ - [facility] L [facility] [place] MCHC 33.8 g/dL Normal (applies to [facility] results) [facility] MCH 29.1 pg Normal (applies to [facility] results) [facility] RBC 4.60 Normal [facility] L results) [facility] Hgb 13.4 g/dL Normal (applies to [facility] results) [facility] Hct 39.6 % Normal (applies to [facility] results) Hospital [facility] ID Date Data Source [id number] 07/09/2018 10:44:00 PM EDT [facility] [id number] [facility] Name Value Range Interpretation Description Data Source(s ) Supporting Code Document(s ) Amylase Lvl 46 unit/L Normal (applies to [facility] results) Hospital [facility] ID Date Data Source [id number] 07/09/2018 10:44:00 PM EDT [facility] [id number] [facility] Name Value Range Interpretation Code Description Data Jeanette rce(s) Supporting Document(s ) Bili Direct Normal [facility] ID Date Data Source [id number] 07/09/2018 10:44:00 PM EDT [facility] [id number] [facility] Name Value Range Interpretation Description Data Source(s ) Supporting Code Document(s ) Alk Phos 61 Normal (applies [place] [facility] unit/L to non[facility] results) [facility] AST 20 Normal (applies [place] [facility] unit/L to [facility] results) [facility] ALT 26 Normal (applies [place] [facility] unit/L to [facility] results) [facility] Calcium Lvl 10.2 Normal (applies [place] [facility] mg/dL to [facility] results) [facility] Bili Total 0.50 Normal (applies [place] [facility] mg/dL to [facility] results) [facility] Total Protein 7.6 g/dL Normal (applies [place] [facility] to [facility] results) [facility] Albumin Lvl 4.2 g/dL Normal (applies [place] [facility] to [facility] results) [facility] AGPK 13.9 Normal (applies [place] [facility] to [facility] results) [facility] Sodium Lvl 135 Below low normal [place] [facility] mmol/L - [facility] Potassium Lvl 3.9 Normal (applies [place] [facility] mmol/L to non-[facility] results) [facility] CO2 23 Normal (applies [place] [facility] mmol/L to [facility] results) [facility] Creatinine 0.52 Normal (applies [place] [facility] mg/dL to [facility] results) [facility] Chloride 102 Normal (applies [place] [facility] mmol/L to [facility] results) [facility] BUN 12 mg/dL Normal (applies [place] [facility] to non[facility] results) [facility] Glucose Lvl 89 mg/dL Normal (applies [facility] emerita to non-numeric - [facility] results) Hospital Center ID Date Data Source [id number] 07/09/2018 10:44:00 PM EDT [facility] [id number] [facility] Name Value Range Interpretation Description Data Source(s ) Supporting Code Document(s ) Lipase Lvl 56 unit/L Normal (applies to [facility] results) Hospital Center ID Date Data Source [id number] 07/09/2018 10:44:00 PM EDT [facility] [id number] [facility] Name Value Range Interpretation Description Data Source(s ) Supporting Code Document(s ) UA Spec Grav Above high [place] normal Rust UA Color Yellow Normal (applies [place] (07/09/18 to non-numeric [facility] - 10:44 PM) results) [facility] UA Blood Negative [place] *NA*( 10:44 [facility] PM) [facility] UA Ketones 80 mg/dL [facility] UA Leuk Est Negative Normal (applies [place] (07/09/18 to non-numeric [facility] - 10:44 PM) results) [facility] UA Appear Cloudy [place] *ABN*(07/09 10:44 [facility] PM) [facility] UA Nitrite Negative Normal (applies [place] (07/09/18 to non-numeric [facility] - 10:44 PM) results) [facility] UA Glucose Negative Normal (applies [place] (07/09/18 to non-numeric [facility] - 10:44 PM) results) [facility] UA pH 5.5 Normal (applies [place] to non-numeric [facility] - results) [facility] UA Protein 20 mg/dL [facility] UA Bili Negative Normal (applies [place] (07/09/18 to non-numeric [facility] - 10:44 PM) results) [facility] UA Normal Normal (applies [place] Urobilinogen (07/09/18 to non-numeric [facility] - 10:44 PM) results) [facility] ID Date Data Source [id number] 07/09/2018 10:44:00 PM EDT [facility] [id number] [facility] Name Value Range Interpretation Code Description Data Jeanette rce(s) Supporting Document(s ) INR 1.2 Normal (applies to [place] [facility] - non-numeric results) [facility] PT 14.2 s Above high [facility] ID Date Data Source [id number] 07/09/2018 10:44:00 PM EDT [facility] [id number] [facility] Name Value Range Interpretation Description Data Source(s ) Supporting Code Document(s ) Beta hCG Pos [place] [facility] *[facility]N*(06/29 - [facility] 03/19 [facility] 10:44 PM) ID Date Data Source [id number] 07/09/2018 10:44:00 PM EDT [facility] [id number] [facility] Name Value Range Interpretation Description Data Source(s ) Supporting Code Document(s ) Baso Percent 0.6 % Normal (applies [place] [facility] to non-numeric [facility] results) [facility] Eos Percent 1.9 % Normal (applies [place] [facility] to non-numeric [facility] results) [facility] Lymph 3.1 Normal (applies [place] [facility] Absolute x10(3)/mc to non-numeric - [facility] L results) [facility] Neutro 10.2 Above high normal [place] [facility] Absolute x10(3)/mc - [facility] L [facility] Baso 0.1 Normal (applies [place] [facility] Absolute x10(3)/mc to non-numeric - [facility] L results) [facility] Eos Absolute 0.3 Normal (applies [place] [facility] x10(3)/mc to non-numeric [facility] L results) [facility] Addison 1.5 Normal (applies [place] [facility] Absolute x10(3)/mc to non-[facility] L results) [facility] Neutro 67.3 % Normal (applies [place] [facility] Percent to [facility] results) [facility] Addison Percent 9.6 % Normal (applies [place] [facility] to non-[facility] results) [facility] Lymph 20.6 % Normal (applies [place] [facility] Percent to [facility] results) Hospital [facility] ID Date Data Source [id number] 07/09/2018 10:44:00 PM EDT [facility] [id number] [facility] Name Value Range Interpretation Description Data Source(s ) Supporting Code Document(s ) Eos Man 2.0 % Normal (applies [place] [facility] to [facility] results) [facility] Monocyte 10.0 % Normal (applies [place] [facility] Man to [facility] results) Hospital [facility] Segs Man 68.0 % Normal (applies [place] [facility] to [facility] results) Hospital Center Lymph Man 19.0 % Below low normal [facility] an [facility] RBC Morph Normal Normal (applies [place] [facility] (07/09/18 to [facility] 10:44 PM) results) Hospital Center Plts Morph Plt Normal (applies [place] [facility] Adequate to non-[facility] (07/09/18 results) Hospital Center 10:44 PM) Atyp Lymph 1.0 % Above high normal [facility] - [facility] Basophil 0.0 % Normal (applies [place] [facility] Man to [facility] results) Hospital Center ID Date Data Source [id number] 07/09/2018 10:44:00 PM EDT [facility] [id number] Hospital [facility] Name Value Range Interpretation Description Data Source(s ) Supporting Code Document(s ) UA Mucous Moderate [place] /HPF Rust UA RBC 0-4 /HPF Normal (applies [place] to non-numeric [facility] - results) [facility] UA WBC 0-4 /HPF Normal (applies [place] to non-numeric [facility] - results) [facility] UA Squam 5-9 /HPF [place] Epithelial [facility] - [facility] ID Date Data Source [id number] 07/09/2018 10:44:00 PM EDT [facility] [id number] [facility] Name Value Range Interpretation Code Description Data Jeanette rce(s) Supporting Document(s ) EGFR Non [facility] - AA [facility] EGFR AA [facility] ID Date Data Source [id number] 06/27/2018 01:48:04 PM EDT [facility] [id number] [facility] Name Value Range Interpretation Code Description Data Jeanette rce(s) Supporting Document(s ) RADRPT <table [facility] border="1" - [facility] width="95%"><col Hospital Cent er group><col width="25%"></co l><col width="25%"></co l><col width="25%"></co l><col width="25%"></co l></colgroup><tb corinne><tr><td>Exam Date Time</td><td>Pro cedure</td><td>P erforming Provider</td><td >Status</td></tr ><tr><td>06/27/18 1:48 PM</td><td>US 1st Trimester</td><t d>TIFFANIE CHRISTIANSON; </td><td>Auth (Verified)</td>< /tr></tbody></ta ble><paragraph>N otes:</paragraph ><paragraph>(US 1st Trimester) Reason For Exam: Normal Preg Screening</kay raph><paragraph> <content>Report< /content>
<c ontent ID="[id number]">Transvagi nal
First Trimester Pelvic Duplex Doppler Ultrasound.

CLINICAL HISTORY: First trimester with bleeding

An ultrasound of the pelvis was performed. Arterial color flow imaging
and spectral analysis was also performed. Images reveal the uterus to
measure 10.7 x 4.3 x 5.2 cm. No intrauterine gestational sac is seen.
No uterine masses are noted. The endometrial echo measures 1.5 cm The
right ovary measures 3.5 x 2.4 x 2.6 cm. The left ovary measures 2.4 x
1.5 x 2.5 cm. No adnexal masses are visualized. Both ovaries
demo nstrate flow. No free fluid is noted in the cul-de-sac.
IMPRESSION:
1. No intrauterine gestational sac seen. This could represent an early
gestat ion versus AB in progress. An ectopic cannot be ruled
out. Suggest Correlation with serial beta hCGs and follow-up
ul trasound. </content>
< content> Final

D ictated: 06/27/2018 1:59 pm KHLOE WHITNEY MD
<br/ >Signed (Electronic Signature): 06/27/2018 1:59 pm
Signed by: KHLOE WHITNEY MD
Villanueva scribed by: MARGY Technologist: SERGEY </content></para graph> ID Date Data Source [id number] 06/27/2018 12:51:00 PM EDT [facility] [id number] [facility] Name Value Range Interpretation Code Description Data Jeanette rce(s) Supporting Document(s ) ABO/Rh A POS [facility] ID Date Data Source [id number] 06/27/2018 12:51:00 PM EDT [facility] [id number] [facility] Name Value Range Interpretation Description Data Source(s ) Supporting Code Document(s ) Capture Negative Normal (applies [facility] n ABS ABSC to non-numeric Health System (06/27/18 results) Hospital Center 12:51 PM) ID Date Data Source [id number] 06/27/2018 12:50:00 PM EDT [facility] [id number] [facility] Name Value Range Interpretation Description Data Source(s ) Supporting Code Document(s ) Beta hCG 872.23 [facility] Quant mIU/mL - [facility] Procedure Social History Code Duration Value Status Description Data Source(s ) Tobacco smoking 02/19/2019 Never completed [place] [facility] - consumption 04:57:42 PM [facility] unknown (finding) EST [facility] Tobacco smoking 02/19/2019 Never completed [place] [facility] - consumption 04:57:42 PM [facility] unknown (finding) [facility] Smoking 11/04/2017 Former Smoker completed Former Smoker eCW3 (Hu dson 12:00:00 AM [facility] EDT Care) Tobacco smoking Unknown if [facility] For status [facility] ever smoked [facility] assigned at Not on file Not on file [facility] Tobacco smoking Ex-smoker completed Ex-smoker [facility] terian - consumption unknown (finding) (finding) [facility] (finding) [facility] Substance Abuse UNK completed [facility] Sexual UNK completed [facility] Alcohol UNK completed [facility] Tobacco smoking Ex-smoker completed Ex-smoker [facility] terian - consumption unknown (finding) (finding) [facility] (finding) [facility] Substance Abuse UNK completed [facility] Sexual UNK completed [facility] Alcohol UNK completed [facility] Smoking Unknown if ever completed Unknown if ever eCW2 ([facility]) Smoking Unknown if ever completed Unknown if ever eCW2 ([facility] smoked smoked [facility]) Former Smoker completed Former Smoker eCW3 ([facility]) Vital Signs ID Date Data Source UNK Name Value Range Interpretation Code Description Data Source(s) Body height 160.000 cm 160.000 cm [facility] Body weight 95.000 kg 95.000 kg [facility] an - Measured [facility] Body surface area 2.05 2.05 [facility] Body weight 95 kg 95 kg [facility] an - Measured [facility] Body height 160 cm 160 cm [facility] Mean blood 89 mm[Hg] 89 mm[Hg] [place] [facility] - pressure [facility] Diastolic blood 77 mm[Hg] Normal (applies to 77 mm[Hg] N [place] [facility] - pressure non-numeric results) [facility] Systolic blood 114 mm[Hg] Normal (applies to 114 mm[Hg] [place] [facility] - pressure non-numeric results) [facility] Respiratory rate 16 br/min Normal (applies to 16 br/min [place] [facility] - non-numeric results) [facility] Peripheral Pulse 85 bpm Normal (applies to 85 bpm [place] [facility] - Rate non-numeric results) [facility] Body temperature 98 [degF] Normal (applies to 98 [degF] [place] [facility] - non-numeric results) [facility] Mean blood 82 mm[Hg] 82 mm[Hg] [place] [facility] - pressure [facility] Diastolic blood 68 mm[Hg] Normal (applies to 68 mm[Hg] N [place] [facility] - pressure non-numeric results) [facility] Systolic blood 109 mm[Hg] Normal (applies to 109 mm[Hg] [place] [facility] - pressure non-numeric results) [facility] Respiratory rate 16 br/min Normal (applies to 16 br/min [place] [facility] - non-numeric results) [facility] Peripheral Pulse 92 bpm Normal (applies to 92 bpm [place] [facility] - Rate non-numeric results) [facility] Body temperature 98.2 [degF] Normal (applies to 98.2 [degF ] [place] [facility] - non-numeric results) [facility] Mean blood 88 mm[Hg] 88 mm[Hg] [place] [facility] - pressure [facility] Diastolic blood 75 mm[Hg] Normal (applies to 75 mm[Hg] N [place] [facility] - pressure non-numeric results) [facility] Systolic blood 114 mm[Hg] Normal (applies to 114 mm[Hg] [place] [facility] - pressure non-numeric results) [facility] Respiratory rate 18 br/min Normal (applies to 18 br/min [place] [facility] - non-numeric results) [facility] Peripheral Pulse 95 bpm Normal (applies to 95 bpm [place] [facility] - Rate non-numeric results) [facility] Body temperature 97.7 [degF] Normal (applies to 97.7 [degF ] [place] [facility] - non-numeric results) [facility] Mean blood 76 mm[Hg] 76 mm[Hg] [place] [facility] - pressure [facility] Diastolic blood 63 mm[Hg] Normal (applies to 63 mm[Hg] N [place] [facility] - pressure non-numeric results) [facility] Systolic blood 102 mm[Hg] Normal (applies to 102 mm[Hg] [place] [facility] - pressure non-numeric results) [facility] Respiratory rate 18 br/min Normal (applies to 18 br/min [place] [facility] - non-numeric results) [facility] Peripheral Pulse 92 bpm Normal (applies to 92 bpm [place] [facility] - Rate non-numeric results) [facility] Body temperature 98.0 [degF] Normal (applies to 98.0 [degF ] [place] [facility] - non-numeric results) [facility] Body height 165.000 cm 165.000 cm [place] [facility] - [facility] Body weight 109.090 kg 109.090 kg [place] [facility] - Measured [facility] Body mass index 40.07 m2 40.07 m2 [place] [facility] - (BMI) [Ratio] [facility] Body surface area 2.24 2.24 [facility] Body weight 77.3 kg 77.3 kg [place] [facility] - Measured --pre [facility] Body weight 109.09 kg 109.09 kg [place] [facility] - Measured [facility] Body height 165 cm 165 cm [place] [facility] - [facility] Mean blood 90 mm[Hg] 90 mm[Hg] [place] [facility] - pressure [facility] Diastolic blood 74 mm[Hg] Normal (applies to 74 mm[Hg] N [place] [facility] - pressure non-numeric results) [facility] Systolic blood 123 mm[Hg] Normal (applies to 123 mm[Hg] [place] [facility] - pressure non-numeric results) [facility] Respiratory rate 18 br/min Normal (applies to 18 br/min [place] [facility] - non-numeric results) [facility] Peripheral Pulse 86 bpm Normal (applies to 86 bpm [place] [facility] - Rate non-numeric results) [facility] Body temperature 99 [degF] Normal (applies to 99 [degF] [place] [facility] - non-numeric results) [facility] Body mass index 36.73 m2 36.73 m2 [place] [facility] - (BMI) [Ratio] [facility] Body surface area 2.14 2.14 [facility] Body weight 80.90 kg 80.90 kg [place] [facility] - Measured --pre [facility] Body weight 100.00 kg 100.00 kg [place] [facility] - Measured [facility] Body height 165 cm 165 cm [place] [facility] - [facility] Body height 165.000 cm 165.000 cm [place] [facility] - [facility] Body weight 100.000 kg 100.000 kg [place] [facility] - Measured [facility] Body temperature 97.8 [degF] Normal (applies to 97.8 [degF ] [place] [facility] - non-numeric results) [facility] Heart rate Cardiac 85 bpm Normal (applies to 85 bpm [place] [facility] - apex by by non-numeric results) [facility] Respiratory rate 18 br/min Normal (applies to 18 br/min [place] [facility] - non-numeric results) [facility] Mean blood 82 mm[Hg] 82 mm[Hg] [place] [facility] - pressure [facility] Diastolic blood 66 mm[Hg] Normal (applies to 66 mm[Hg] N [place] [facility] - pressure non-numeric results) [facility] Systolic blood 115 mm[Hg] Normal (applies to 115 mm[Hg] [place] [facility] - pressure non-numeric results) [facility] Body surface area 2.01 2.01 [place] [facility] - [facility] Body weight 88 kg 88 kg [place] [facility] - Measured [facility] Body height 165 cm 165 [facility] Body weight 88.000 kg 88.000 kg [place] [facility] - Measured [facility] Body height 165.000 cm 165.000 cm [facility] an - [facility] Diastolic blood 65 mm[Hg] Normal (applies to 65 mm[Hg] N [place] [facility] - pressure non-numeric results) [facility] [facility] Systolic blood 99 mm[Hg] Normal (applies to 99 mm[Hg] [facility] - pressure non-numeric results) [facility] Mean blood 76 mm[Hg] 76 mm[Hg] [place] [facility] pressure [facility] Respiratory rate 18 br/min Normal (applies to 18 br/min [facility] - non-numeric results) [facility] Peripheral Pulse 79 bpm Normal (applies to 79 bpm [facility] - Rate non-numeric results) [facility] Body temperature - 98.0 [degF] 98.0 [degF] [facility] - Temporal artery [facility] Peripheral Pulse 86 bpm Normal (applies to 86 bpm [place] [facility] - Rate non-numeric results) [facility] Body temperature - 98.1 [degF] 98.1 [degF] [facility] - Temporal artery [facility] Diastolic blood 47 mm[Hg] Below low normal 47 mm[Hg] [facility] - pressure [facility] Systolic blood 93 mm[Hg] Normal (applies to 93 mm[Hg] [facility] - pressure non-numeric results) [facility] Mean blood 62 mm[Hg] 62 mm[Hg] [place] [facility] Respiratory rate 18 br/min Normal (applies to 18 br/min [facility] - non-numeric results) [facility] Body height 160.000 cm 160.000 cm [place] [facility] Body weight 79.000 kg 79.000 kg [place] [facility] - Measured [facility] Respiratory rate 18 br/min Normal (applies to 18 br/min [facility] - non-numeric results) [facility] Body temperature 97.9 [degF] Normal (applies to 97.9 [degF ] [facility] - non-numeric results) [facility] Body height 160 cm 160 cm [place] [facility] Body surface area 1.87 1.87 [place] [facility] - [facility] Body weight 79 kg 79 kg [place] [facility] - Measured [facility] Mean blood 87 mm[Hg] 87 mm[Hg] [place] [facility] pressure [facility] Peripheral Pulse 82 bpm Normal (applies to 82 bpm [facility] - Rate non-numeric results) [facility] Diastolic blood 73 mm[Hg] Normal (applies to 73 mm[Hg] [place] [facility] [place] non-numeric results[place] [facility] Systolic blood 115 mm[Hg] Normal (applies to 115 mm[Hg] [facility] - pressure non-numeric results) [facility] Diastolic blood 64 mm[Hg] Normal (applies to 64 mm[Hg] [place] [facility] non-numeric results[place] [facility] Systolic blood 116 mm[Hg] Normal (applies to 116 mm[Hg] [facility] - pressure non-numeric results) [facility] Respiratory rate 16 br/min Normal (applies to 16 br/min [facility] - non-numeric results) [facility] Mean blood 81 mm[Hg] 81 mm[Hg] [place] [facility] Peripheral Pulse 79 bpm Normal (applies to 79 bpm [facility] - Rate non-numeric results) [facility] Body height 159.000 cm 159.000 [place] [facility] Body weight 80.000 kg 80.000 kg [place] [facility] - Measured [facility] Body temperature - 98 [degF] 98 [degF] [place] [facility] - Temporal artery [facility] Body height 159 cm 159 cm [place] [facility] Peripheral Pulse 80 bpm Normal (applies to 80 bpm [place] [facility] - Rate non-numeric results) [facility] Diastolic blood 70 mm[Hg] Normal (applies to 70 mm[Hg] [place] [facility] non-numeric results[place] [facility] Systolic blood 110 mm[Hg] Normal (applies to 110 mm[Hg] [facility] - pressure non-numeric results) [facility] Mean blood 83 mm[Hg] 83 mm[Hg] [place] [facility] Respiratory rate 16 br/min Normal (applies to 16 br/min [facility] - non-numeric results) [facility] Body weight 80 kg 80 kg [place] [facility] - Measured [facility] Body surface area 1.88 1.88 [facility] Jalyn chin Patient Treatment Plan of Care Planned Activity Planned Date Details Description Data Source (s) Docusate Sodium 100 MG 02/24/2019 [place] [facility] - Oral Capsule 09:30:27 AM [facility] Oxycodone Hydrochloride 5 02/24/2019 [facility] - MG Oral Tablet 09:30:16 AM [facility] Acetaminophen 325 MG Oral 02/24/2019 [place] [facility] - Tablet 09:30:08 AM [facility] Ibuprofen 800 MG Oral 02/24/2019 [place] [facility] - Tablet 09:30:05 AM [facility] 1 12/01/2018 [facility] MG Oral 07/10/2018 [facility] MG Oral 04/02/2018 [facility] - Tablet 06:26:25 PM [facility] Augmentin 875 mg oral 11/24/2017 [place] [facility] - tablet 08:13:56 PM EDT [facility]
--- NOTE | 2019-11-25 13:06 | PDOC ---
History of Present Illness - General Chief Complaint: Pain Stated Complaint: ABD PAIN/RECTAL BLEED Time Seen by Provider: 11/25/19 12:09 History Source: Patient Exam Limitations: No Limitations - History of Present Illness Travel History: No Initial Comments: 11/25/19 13:27 24-year-old female presents to ED with lower abdominal cramping associated with constipation for the past week. Patient states this morning after moving her bowels which was slightly exertional she had noted blood in her stool brown stool but otherwise no complaints of continual bleeding history of hemorrhoids, or rectal discomfort., Timing/Duration: reports: constant Quality: reports: mild, cramping Pain Radiation: reports: RLQ, LLQ Activities at Onset: reports: none Aggravating Factors: improves with: None Alleviating Factors: improves with: None Past History - Travel History Traveled outside of the country in the last 30 days: No Close contact w/someone who was outside of country & ill: No - Medical History Allergies/Adverse Reactions: Allergies Allergy/AdvReac Type Severity Reaction Status Date / Time No Known Allergies Allergy Verified 11/25/19 11:46 Home Medications: Ambulatory Orders NK [No Known Home Medication] 10/25/17 Asthma: Yes COPD: No - Reproductive History Is Patient Now?: No - Immunization History Immunization Up to Date: Yes - Psycho-Social/Smoking History Patient Lives Alone: No Lives with/in: parents Smoking Status: Yes Smoking History: Current some day smoker Have you smoked in the past 12 months: Yes Number of Cigarettes Smoked Daily: 0 Cigars Per Day: 0 Information on smoking cessation initiated: Yes - Substance Abuse Hx (Audit-C & DAST Scrn) How often the patient has a drink containing alcohol: Never Score: In Men: 4 or > Positive; In Women: 3 or > Positive: 0 Screen Result (Pos requires Nsg. Audit-10AR): Negative In the last yr the pt used illegal drug/Rx for NonMed reason: Yes Score: Yes response is considered Positive: 1 Screen Result (Positive result requires Nsg. DAST-10): Positive Review of Systems - Review of Systems Able to Perform ROS?: Yes Is the patient limited Sinhala proficient: Yes Constitutional: No: Symptoms Reported HEENTM: No: Symptoms Reported Respiratory: No: Symptoms reported Cardiac (ROS): No: Symptoms Reported ABD/GI: Yes: Blood Streaked Bowels, Constipated, Abdominal cramping : No: Symptoms Reported Musculoskeletal: No: Symptoms Reported Integumentary: No: Symptoms Reported Neurological: No: Symptoms reported Endocrine: No: Symptoms Reported Hematologic/Lymphatic: No: Symptoms Reported *Physical Exam - Vital Signs Last Vital Signs Temp Pulse Resp BP Pulse Ox 98.3 F 73 16 103/49 L 100 11/25/19 11:47 11/25/19 11:47 11/25/19 11:47 11/25/19 11:47 11/25/19 11:47 - Physical Exam General Appearance: Yes: Nourished, Appropriately Dressed. No: Apparent Di stress HEENT: positive: EOMI, MARIAJOSE. negative: Pale Conjunctivae Neck: positive: Supple Respiratory/Chest: positive: Lungs Clear, Normal Breath Sounds. negative: Respiratory Distress, Accessory Muscle Use Cardiovascular: positive: Regular Rhythm, Regular Rate. negative: Murmur Gastrointestinal/Abdominal: positive: Normal Bowel Sounds, Soft. negative: Distended, Tenderness Rectal Exam: negative: hemorrhoids Integumentary: positive: Normal Color, Warm, Moist Neurologic: positive: Motor Strength 5/5 (Ambulatory) ED Treatment Course - LABORATORY CBC & Chemistry Diagram: 11/25/19 12:35 11/25/19 12:35 - RADIOLOGY Radiology Studies Ordered: Category Date Time Status ABDOMEN FLAT & UPRIGHT [RAD] Stat Radiology 11/25/19 12:36 Ordered Medical Decision Making - Medical Decision Making 11/25/19 13:39 Constipation for 1 week along with lower abdominal cramping now with blood tinged stool this morning upon exertion. Exam: Patient with normal physical exam no visible hemorrhoid Plan: Flat and upright labs and urine 11/25/19 14:39 Laboratory Tests 11/25/19 11/25/19 11/25/19 12:35 12:35 12:35 WBC 7.3 Hgb 13.8 Hct 41.3 Absolute Neuts (auto) 4.5 Neutrophils % 61.5 Sodium 141 Potassium 4.1 Chloride 106 Carbon Dioxide 30 Anion Gap 6 L BUN 14.2 Creatinine 0.7 Random Glucose 93 Calcium 9.9 Magnesium 2.3 Total Bilirubin 0.7 AST 14 L ALT 18 Urine Ketones Trace H Urine Blood Negative Urine Nitrite Negative Urine Bilirubin Negative Ur Leukocyte Esterase Negative Urine HCG, Qual Negative X-ray reviewed by residential mortgage underwriter. Patient with fecal retention throughout the abdomen. IUD appears to be migrated. Patient will follow-up with her [employer] patient will be given instructions on constipation Discharge - Discharge Information Problems reviewed: Yes Clinical Impression/Diagnosis: Constipation Condition: Good Disposition: HOME - Follow up/Referral - Patient Discharge Instructions Patient Printed Discharge Instructions: DI for Constipation, Constipation (Alternative Therapy), Increased Dietary Fiber May Improve Constipation Conditions With Pelvic Mitesh Additional Instructions: At this time I recommend reading over information regards to constipation staying active and drinking plenty of fluids. In regards to your IUD I recommend follow-up with your [employer] to discuss options and in the meanwhile please use an alternate form of control - Post Discharge Activity
[2019-11-25 13:21] LABS: BASO % 0.7 % (0-2.0); EOS % 1.8 % (0-4.5); HEMATOCRIT 41.3 % (32.4-45.2); HEMOGLOBIN 13.8 GM/dL (10.7-15.3); LYMPH % 26.6 % (8-40); MCH 28.8 pg (25.7-33.7); MCHC 33.3 g/dl (32.0-36.0); MEAN CELL VOLUME 86.4 fl (80-96); MONO % 9.4 % (3.8-10.2); NEUT % 61.5 % (42.8-82.8); PLATELET COUNT 342 K/MM3 (134-434); RBC 4.78 M/mm3 (3.60-5.2); RDW 14.7 % (11.6-15.6); WHITE BLOOD COUNT 7.3 K/mm3 (4.0-10.0)
[2019-11-25 13:23] LABS: PH,URINE 6.5 (5.0-8.0); URINE APPEARANCE CLEAR; URINE BILIRUBIN NEGATIVE (NEGATIVE); URINE COLOR DK YELLOW; URINE GLUCOSE (UA) NEGATIVE (NEGATIVE); URINE KETONE TRACE (NEGATIVE); URINE LEUK ESTERASE NEGATIVE (NEGATIVE); URINE NITRITE NEGATIVE (NEGATIVE); URINE PROTEIN TRACE (NEGATIVE)
[2019-11-25 13:26] LABS: HCG,QUALITATIVE URINE Negative
[2019-11-25 13:32] LABS: ALBUMIN 4.3 g/dl (3.4-5.0); BILIRUBIN,TOTAL 0.7 mg/dL (0.2-1); BLOOD UREA NITROGEN 14.2 mg/dL (7-18); CALCIUM 9.9 mg/dL (8.5-10.1); CREATININE 0.7 mg/dL (0.55-1.3); MAGNESIUM 2.3 mg/dL (1.8-2.4); POTASSIUM 4.1 mmol/L (3.5-5.1)
== END 2019-11-25 14:51 | disposition home or self-care (01) ==
LOC: JER 11:33
DX: K59.00 Constipation, unspecified (principal)
CPT/HCPCS: 36415; 74019-TC-FY; 80053; 81003; 83690; 83735; 84703; 85025; 87086; 99284-25

== ENCOUNTER 2021-02-28 09:10 | Emergency (ER) | payer OTHER ==
[2021-02-28 09:41] VITALS: BP 102/67; PULSE 69; TEMP 97.6; BMI 30.9
[2021-03-03 17:08] LABS: SARS-CoV-2 NAA Detected (Not Detected)
== END 2021-02-28 13:57 | disposition home or self-care (01) ==
LOC: JER 09:10
DX: J06.9 Acute upper respiratory infection, unspecified (principal)
CPT/HCPCS: 87804; 87807; 99283-25; C9803; U0003; U0005

== ENCOUNTER 2021-03-24 10:29 | Emergency (ER) | payer OTHER ==
[2021-03-24 10:43] VITALS: BP 105/55; PULSE 76; TEMP 97.9; BMI 31.8
== END 2021-03-24 12:22 | disposition home or self-care (01) ==
LOC: JERFT 10:29
DX: S05.12XA Contusion of eyeball and orbital tissues, left eye, initial encounter (principal); Y04.8XXA Assault by other bodily force, initial encounter
CPT/HCPCS: 99281-25

== ENCOUNTER 2021-04-12 20:01 | Inpatient (IN) | payer OTHER ==
[2021-04-12 20:59] LABS: BASO % 0.5 % (0-2.0); EOS % 2.1 % (0-4.5); HEMATOCRIT 36.3 % (32.4-45.2); HEMOGLOBIN 12.3 GM/dL (10.7-15.3); LYMPH % 23.1 % (8-40); MCH 29.1 pg (25.7-33.7); MCHC 33.9 g/dl (32.0-36.0); MEAN CELL VOLUME 85.8 fl (80-96); MEAN PLT VOLUME 7.7 fl (7.5-11.1); MONO % 7.7 % (3.8-10.2); NEUT % 66.6 % (42.8-82.8); PLATELET COUNT 298 10^3/uL (134-434); RBC 4.23 M/mm3 (3.60-5.2); RDW 13.9 % (11.6-15.6); WHITE BLOOD COUNT 10.5 K/mm3 (4.0-10.0)
[2021-04-12 21:19] LABS: CALCIUM 8.9 mg/dL (8.5-10.1)
[2021-04-12 21:20] LABS: ALBUMIN 3.9 g/dl (3.4-5.0)
[2021-04-12 21:23] LABS: CREATININE 0.7 mg/dL (0.55-1.3)
[2021-04-12 21:25] LABS: BILIRUBIN,TOTAL 0.4 mg/dL (0.2-1); TOT PROT 7.1 g/dl (6.4-8.2)
[2021-04-12 21:31] LABS: URINE APPEARANCE CLEAR; URINE BILIRUBIN NEGATIVE (NEGATIVE); URINE COLOR YELLOW; URINE GLUCOSE (UA) NEGATIVE (NEGATIVE); URINE KETONE NEGATIVE (NEGATIVE); URINE LEUK ESTERASE NEGATIVE (NEGATIVE); URINE NITRITE NEGATIVE (NEGATIVE); URINE PROTEIN NEGATIVE (NEGATIVE); URINE UROBILINOGEN 0.2 mg/dL (0.2-1.0)
[2021-04-12] MEDS ORDERED: PIPERACILLIN/TAZOB 3.375 GM 3.375 GM in DEXTROSE 5%-WATER - 50 ML IVPB ONE (22:17)
[2021-04-12] MEDS ORDERED: PIPERACILLIN/TAZOB 3.375 GM 3.375 GM/50 ML BAG IVPB ONE (22:32)
[2021-04-13 02:38] VITALS: BMI 33.1
[2021-04-13 09:59] LABS: BASO % 0.5 % (0-2.0); EOS % 2.4 % (0-4.5); HEMATOCRIT 37.8 % (32.4-45.2); HEMOGLOBIN 12.3 GM/dL (10.7-15.3); MCH 28.8 pg (25.7-33.7); MCHC 32.7 g/dl (32.0-36.0); MEAN CELL VOLUME 88.3 fl (80-96); MEAN PLT VOLUME 8.5 fl (7.5-11.1); MONO % 7.6 % (3.8-10.2); NEUT % 67.5 % (42.8-82.8); PLATELET COUNT 285 10^3/uL (134-434); RBC 4.28 M/mm3 (3.60-5.2); RDW 14.1 % (11.6-15.6); WHITE BLOOD COUNT 7.4 K/mm3 (4.0-10.0)
[2021-04-13] MEDS ORDERED: FOLIC ACID 1 MG TABLET (FP) PO SCH (10:00)
[2021-04-13] MEDS ORDERED: CYANOCOBALAMIN (VITAMIN B-12) 100 MCG TABLET PO SCH (10:00)
[2021-04-13 10:20] LABS: BLOOD UREA NITROGEN 13.2 mg/dL (7-18); CALCIUM 8.5 mg/dL (8.5-10.1); MAGNESIUM 2.3 mg/dL (1.8-2.4)
[2021-04-13 10:21] LABS: ALBUMIN 3.7 g/dl (3.4-5.0)
[2021-04-13 10:23] LABS: PHOSPHOROUS 3.6 mg/dL (2.5-4.9)
[2021-04-13 10:24] LABS: CREATININE 0.6 mg/dL (0.55-1.3)
[2021-04-13 10:25] LABS: TOT PROT 6.8 g/dl (6.4-8.2)
[2021-04-13] MEDS: ENOXAPARIN NA (PORCINE) 40 MG/0.4 ML DISP.SYRIN SQ SCH (11:07)
[2021-04-13] MEDS ORDERED: DEXTROSE 5%-WATER - 50 ML IVPB ONE ×2 (13:49→17:25)
[2021-04-13] MEDS ORDERED: PIPERACILLIN/TAZOBACTAM 3.375 GM VIAL IVPB ONE ×2 (13:49→17:25)
[2021-04-13] MEDS: PIPERACILLIN/TAZOB 3.375 GM 3.375 GM in DEXTROSE 5%-WATER - 50 ML IVPB SCH ×2 (14:04→17:30)
[2021-04-13] MEDS: PRENATAL VITAMINS W/ FOLIC ACID TABLET (FP) PO SCH (16:41)
[2021-04-13] MEDS ORDERED: PYRIDOXINE HCL (B-6) 50 MG TABLET (FP) PO ONE (22:01)
[2021-04-14] MEDS ORDERED: PIPERACILLIN/TAZOBACTAM 3.375 GM VIAL IVPB ONE ×3 (01:22→16:54)
[2021-04-14] MEDS ORDERED: DEXTROSE 5%-WATER - 50 ML IVPB ONE ×3 (01:22→16:54)
[2021-04-14] MEDS: PIPERACILLIN/TAZOB 3.375 GM 3.375 GM in DEXTROSE 5%-WATER - 50 ML IVPB SCH ×2 (01:57→11:17)
[2021-04-14 09:03] LABS: BASO % 0.6 % (0-2.0); EOS % 1.7 % (0-4.5); HEMATOCRIT 37.7 % (32.4-45.2); HEMOGLOBIN 12.3 GM/dL (10.7-15.3); LYMPH % 18.2 % (8-40); MCH 28.5 pg (25.7-33.7); MCHC 32.5 g/dl (32.0-36.0); MEAN CELL VOLUME 87.9 fl (80-96); MEAN PLT VOLUME 8.5 fl (7.5-11.1); NEUT % 70.5 % (42.8-82.8); PLATELET COUNT 292 10^3/uL (134-434); RBC 4.29 M/mm3 (3.60-5.2); RDW 14.2 % (11.6-15.6); WHITE BLOOD COUNT 7.2 K/mm3 (4.0-10.0)
[2021-04-14 09:29] LABS: CALCIUM 9.2 mg/dL (8.5-10.1)
[2021-04-14 09:30] LABS: ALBUMIN 3.8 g/dl (3.4-5.0); MAGNESIUM 2.3 mg/dL (1.8-2.4)
[2021-04-14 09:33] LABS: CREATININE 0.7 mg/dL (0.55-1.3); PHOSPHOROUS 3.4 mg/dL (2.5-4.9)
[2021-04-14 09:34] LABS: BILIRUBIN,TOTAL 0.9 mg/dL (0.2-1)
[2021-04-14 09:51] LABS: SYPHILIS W/ RPR CONF NON-REACTIVE (NONREACTIVE)
[2021-04-14] MEDS ORDERED: METOCLOPRAMIDE HCL 10 MG TABLET (FP) PO ONE (10:15)
[2021-04-14 10:19] LABS: HIV INTERPRETATION NEGATIVE (NEGATIVE)
[2021-04-14] MEDS: ENOXAPARIN NA (PORCINE) 40 MG/0.4 ML DISP.SYRIN SQ SCH (11:17)
[2021-04-14] MEDS: PRENATAL VITAMINS W/ FOLIC ACID TABLET (FP) PO SCH (11:18)
[2021-04-14 17:34] VITALS: BP 126/72; PULSE 76; TEMP 98.4
== END 2021-04-14 19:21 | disposition home or self-care (01) | DRG 566 ==
LOC: JER 20:01 → JERBED 23:21 → J8W 04-13 02:05
PROVIDERS: ADMIT Internal Medicine; ATTEND Internal Medicine
DX: O23.41 Unspecified infection of urinary tract in pregnancy, first trimester (principal); N39.0 Urinary tract infection, site not specified; B96.1 Klebsiella pneumoniae [K. pneumoniae] as the cause of diseases classified elsewhere; Z3A.01 Less than 8 weeks gestation of pregnancy; J45.909 Unspecified asthma, uncomplicated
CPT/HCPCS: 36415; 76817-TC; 80053; 81003; 82962; 83735; 84100; 84702; 84703; 85025; 86780; 87086; 87186; 87389; 93005; 93010; 99285-25; C9803; U0003; U0005

== ENCOUNTER 2021-04-27 14:36 | Emergency (ER) | payer OTHER ==
[2021-04-27 14:43] VITALS: BP 100/67; PULSE 80; TEMP 97; BMI 31.5
[2021-04-27] MEDS ORDERED: ONDANSETRON 4 MG/2 ML VIAL IVPUSH ONE ×2 (14:56→19:22)
[2021-04-27] MEDS ORDERED: FAMOTIDINE 20 MG/50 ML IVPB 20 MG/50 ML MG IVPB ONE ×2 (14:56→15:16)
[2021-04-27] MEDS ORDERED: SODIUM CHLORIDE 0.9% 500 ML INFUS.BAG IV ONE (14:56)
[2021-04-27 15:30] LABS: BASO % 0.6 % (0-2.0); EOS % 1.1 % (0-4.5); HEMOGLOBIN 12.2 GM/dL (10.7-15.3); LYMPH % 18.8 % (8-40); MCH 28.9 pg (25.7-33.7); MEAN CELL VOLUME 87.6 fl (80-96); MEAN PLT VOLUME 8.3 fl (7.5-11.1); MONO % 8.2 % (3.8-10.2); NEUT % 71.3 % (42.8-82.8); PLATELET COUNT 277 10^3/uL (134-434); RBC 4.23 M/mm3 (3.60-5.2); RDW 13.9 % (11.6-15.6); WHITE BLOOD COUNT 10.7 K/mm3 (4.0-10.0)
[2021-04-27 15:32] LABS: PH,URINE 5.5 (5.0-8.0); URINE APPEARANCE CLEAR; URINE BILIRUBIN NEGATIVE (NEGATIVE); URINE COLOR YELLOW; URINE GLUCOSE (UA) NEGATIVE (NEGATIVE); URINE KETONE TRACE (NEGATIVE); URINE LEUK ESTERASE NEGATIVE (NEGATIVE); URINE NITRITE NEGATIVE (NEGATIVE); URINE PROTEIN NEGATIVE (NEGATIVE); URINE UROBILINOGEN 0.2 mg/dL (0.2-1.0)
[2021-04-27 15:56] LABS: CALCIUM 9.1 mg/dL (8.5-10.1)
[2021-04-27 15:57] LABS: ALBUMIN 3.7 g/dl (3.4-5.0); BLOOD UREA NITROGEN 11.6 mg/dL (7-18)
[2021-04-27 16:00] LABS: CREATININE 0.6 mg/dL (0.55-1.3)
[2021-04-27 16:01] LABS: BILIRUBIN,TOTAL 0.4 mg/dL (0.2-1); TOT PROT 6.8 g/dl (6.4-8.2)
[2021-04-27] MEDS ORDERED: DEXTROSE 5%-0.45% SALINE 1,000 ML IV SCH (16:30)
== END 2021-04-27 19:44 | disposition home or self-care (01) ==
LOC: JER 14:36
PROC: 3E033GC Introduction of Other Therapeutic Substance into Peripheral Vein, Percutaneous Approach (ICD-10-PCS; principal; 2021-04-27)
PROC: 3E033GC Introduction of Other Therapeutic Substance into Peripheral Vein, Percutaneous Approach (ICD-10-PCS; 2021-04-27)
PROC: 3E033GC Introduction of Other Therapeutic Substance into Peripheral Vein, Percutaneous Approach (ICD-10-PCS; 2021-04-27)
PROC: 3E033GC Introduction of Other Therapeutic Substance into Peripheral Vein, Percutaneous Approach (ICD-10-PCS; 2021-04-27)
DX: O21.1 Hyperemesis gravidarum with metabolic disturbance (principal); Z3A.01 Less than 8 weeks gestation of pregnancy
CPT/HCPCS: 36415; 76817-TC; 80053; 81003; 84702; 85025; 87086; 96374; 96375; 99284-25

== ENCOUNTER 2021-06-02 17:34 | Emergency (ER) | payer OTHER ==
[2021-06-02 17:48] VITALS: BP 103/66; PULSE 94; TEMP 97.9; BMI 33.6
[2021-06-02] MEDS ORDERED: ONDANSETRON 4 MG/2 ML VIAL IVPUSH ONE (18:44)
[2021-06-02] MEDS ORDERED: SODIUM CHLORIDE 1,000 ML IV STA (18:44)
[2021-06-02] MEDS ORDERED: ONDANSETRON 4 MG/2 ML VIAL ONE (19:06)
[2021-06-02 19:40] LABS: BASO % 0.4 % (0-2.0); HEMATOCRIT 36.8 % (32.4-45.2); HEMOGLOBIN 12.2 GM/dL (10.7-15.3); MCH 28.8 pg (25.7-33.7); MCHC 33.1 g/dl (32.0-36.0); MEAN CELL VOLUME 86.9 fl (80-96); MEAN PLT VOLUME 8.6 fl (7.5-11.1); MONO % 8.6 % (3.8-10.2); PLATELET COUNT 287 10^3/uL (134-434); RBC 4.23 M/mm3 (3.60-5.2); RDW 13.7 % (11.6-15.6); WHITE BLOOD COUNT 10.6 K/mm3 (4.0-10.0)
[2021-06-02 19:45] LABS: PH,URINE 5.5 (5.0-8.0); URINE APPEARANCE CLEAR; URINE BILIRUBIN NEGATIVE (NEGATIVE); URINE COLOR YELLOW; URINE GLUCOSE (UA) NEGATIVE (NEGATIVE); URINE KETONE TRACE (NEGATIVE); URINE LEUK ESTERASE NEGATIVE (NEGATIVE); URINE NITRITE NEGATIVE (NEGATIVE); URINE PROTEIN NEGATIVE (NEGATIVE); URINE UROBILINOGEN 0.2 mg/dL (0.2-1.0)
[2021-06-02 19:56] LABS: ALBUMIN 3.5 g/dl (3.4-5.0); BLOOD UREA NITROGEN 14.4 mg/dL (7-18); CALCIUM 9.2 mg/dL (8.5-10.1)
[2021-06-02 19:59] LABS: CREATININE 0.6 mg/dL (0.55-1.3)
[2021-06-02 20:01] LABS: BILIRUBIN,TOTAL 0.2 mg/dL (0.2-1); TOT PROT 6.9 g/dl (6.4-8.2)
== END 2021-06-02 21:03 | disposition home or self-care (01) ==
LOC: JER 17:34
PROC: 3E033GC Introduction of Other Therapeutic Substance into Peripheral Vein, Percutaneous Approach (ICD-10-PCS; principal; 2021-06-02)
PROC: 3E0337Z Introduction of Electrolytic and Water Balance Substance into Peripheral Vein, Percutaneous Approach (ICD-10-PCS; 2021-06-02)
DX: O21.9 Vomiting of pregnancy, unspecified (principal); Z3A.12 12 weeks gestation of pregnancy
CPT/HCPCS: 36415; 80053; 81003; 83690; 85025; 87086; 96361; 96374; 99284-25

== ENCOUNTER 2021-08-31 04:16 | Emergency (ER) | payer OTHER ==
[2021-08-31 04:21] VITALS: BMI 38.9
[2021-08-31 06:22] VITALS: BP 112/62; PULSE 80; TEMP 98.5
== END 2021-08-31 07:50 | disposition left against medical advice (07) ==
LOC: JER 04:16
DX: O9A.212 Injury, poisoning and certain other consequences of external causes complicating pregnancy, second trimester (principal); M25.531 Pain in right wrist; V49.40XA Driver injured in collision with unspecified motor vehicles in traffic accident, initial encounter; Z3A.26 26 weeks gestation of pregnancy
CPT/HCPCS: 99283-25

== ENCOUNTER 2022-04-23 15:11 | Emergency (ER) | payer OTHER ==
[2022-04-23 15:24] VITALS: BP 141/70; PULSE 83; RESP 18; TEMP 98.4; BMI 38.0
[2022-04-23 17:27] LABS: HCG,QUALITATIVE URINE Positive
[2022-04-23 17:31] LABS: BASO % 0.3 % (0-2.0); EOS % 0.7 % (0-4.5); LYMPH % 11.1 % (8-40); MCH 29.2 pg (25.7-33.7); MCHC 34.2 g/dl (32.0-36.0); MEAN CELL VOLUME 85.4 fl (80-96); MEAN PLT VOLUME 8.5 fl (7.5-11.1); MONO % 7.7 % (3.8-10.2); NEUT % 80.2 % (42.8-82.8); PLATELET COUNT 313 10^3/uL (134-434); RBC 4.45 M/mm3 (3.60-5.2); RDW 14.5 % (11.6-15.6); WHITE BLOOD COUNT 14.6 K/mm3 (4.0-10.0)
[2022-04-23 17:40] LABS: PH,URINE 5.5 (5.0-8.0); URINE APPEARANCE CLOUDY; URINE BILIRUBIN NEGATIVE (NEGATIVE); URINE COLOR DK YELLOW; URINE GLUCOSE (UA) NEGATIVE (NEGATIVE); URINE KETONE TRACE (NEGATIVE); URINE LEUK ESTERASE NEGATIVE (NEGATIVE); URINE NITRITE NEGATIVE (NEGATIVE); URINE PROTEIN 2+ (NEGATIVE)
[2022-04-23 17:43] LABS: EPI CELLS 0.7 /uL (0-25.1); URINE BACTERIA 28.6 /uL (0-1359); URINE RBC 0.5 /uL (0-23.9); URINE WBC 23.7 /uL (0-25.8)
[2022-04-23 17:50] LABS: BLOOD UREA NITROGEN 8.7 mg/dL (7-18); CALCIUM 9.3 mg/dL (8.5-10.1)
[2022-04-23 17:51] LABS: ALBUMIN 4.1 g/dl (3.4-5.0)
[2022-04-23 17:53] LABS: CREATININE 0.7 mg/dL (0.55-1.3)
[2022-04-23 17:55] LABS: BILIRUBIN,TOTAL 0.5 mg/dL (0.2-1); TOT PROT 7.6 g/dl (6.4-8.2)
== END 2022-04-23 21:25 | disposition home or self-care (01) ==
LOC: JER 15:11 → JERFT 15:11
DX: O9A.211 Injury, poisoning and certain other consequences of external causes complicating pregnancy, first trimester (principal); R10.9 Unspecified abdominal pain; Y04.8XXA Assault by other bodily force, initial encounter; Z3A.01 Less than 8 weeks gestation of pregnancy
CPT/HCPCS: 0241U-QW; 36415; 76817-TC; 80053; 81003; 84702; 84703; 85025; 86850; 86900; 86901; 87086; 99284-25

== ENCOUNTER 2022-07-02 20:06 | Emergency (ER) | payer OTHER ==
[2022-07-02 20:19] VITALS: BP 100/62; PULSE 74; RESP 18; TEMP 98; BMI 40.7
[2022-07-02] MEDS ORDERED: IBUPROFEN 600 MG TABLET (FP) PO ONE ×2 (20:21→20:22)
[2022-07-02] MEDS ORDERED: AMOXICILLIN 500 MG CAPSULE (FP) PO ONE (21:57)
[2022-07-02] MEDS ORDERED: AMOXICILLIN 250 MG CAPSULE ONE (22:00)
== END 2022-07-02 22:11 | disposition home or self-care (01) ==
LOC: JERFT 20:06
DX: H66.91 Otitis media, unspecified, right ear (principal); H60.91 Unspecified otitis externa, right ear
CPT/HCPCS: 99283-25